=== PATIENT | male | born 1975 | race Caucasian/White ===

== ENCOUNTER → 2024-09-22 11:02 | Outpatient (REF) | payer OTHER, SELFPAY | LOC: RAD 11:02 | PROVIDERS: ATTENDING PHYSICIAN Internal Medicine | DX: M79.662 Pain in left lower leg (principal) | CPT/HCPCS: 73590 ==

== ENCOUNTER 2025-06-04 15:32 | Emergency (ER) | payer OTHER, SELFPAY ==
[2025-06-04 15:36] VITALS: BP 165/116
[2025-06-04 16:00] LABS: Hematocrit 48.1 % (39.0-52.0); Hemoglobin 16.7 g/dL (13.0-18.0); Mean Corp Hgb Conc. 34.7 g/dL (33.0-37.0); Mean Corpuscular Volume 91.3 fL (80.0-94.0); Nucleated Red Blood Cells % 0 % (-); Platelet Count 163 10^3/uL (130-400); Red Cell Dist. Width 12.9 % (11.5-14.5)
[2025-06-04 16:10] LABS: ALT (SGPT) 59 U/L (0-50); AST (SGOT) 40 U/L (17-59); Albumin 4.8 g/dl (3.5-5.0); Alkaline Phosphatase 124 U/L (38-126); Blood Urea Nitrogen 8 mg/dl (9-20); Calcium 9.5 mg/dl (8.4-10.2); Carbon Dioxide 30 mmol/L (22-30); Chloride 102 mmol/L (98-107); Glucose 137 mg/dl (70-99); Potassium 4.5 mmol/L (3.5-5.1); Sodium 138 mmol/L (135-145); Total Protein 7.2 g/dl (6.3-8.2); eGFR > 60.00
[2025-06-04 16:21] LABS: Troponin I 0.015 ng/ml
[2025-06-04 20:00] VITALS: BP 150/101
--- NOTE | 2025-06-04 20:12 | ED.GENMED ---
History of Present Illness
General
Chief Complaint: Chest Pain
Time Seen by Provider: 06/04/25 20:09
Nursing documentation reviewed up to this point in time: agreed with
History of Present Illness
History of Present Illness:
49-year-old male presents to the ER for evaluation of right-sided chest pain which was occurring earlier today. He has no symptoms of pain on arrival in the ER, nor during period of observation while here. He states that he was able to complete
his yard work today without any change in intensity or nature of his discomfort. He denies feeling of shortness of breath. No dyspepsia. No abdominal pain. No palpitations syncope or trauma. 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
defibrillator. He is a long-term patient of Dr. Mendez. He denies any recent cough or cold symptoms. He is been eating and drinking without any difficulty. He did not take any medications to help alleviate his symptoms prior to arrival.
Past History
Past History
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
ED Past Surgical History: Cardiac (AICD hocm)
Social History
Tobacco: Smoker
Alcohol: None
Drug: None
Personal:
Living: with family
Employment: Employed
Family History
Family History: Negative Sudden
Phy Exam
Physical Exam
Physical Exam:
Patient is awake, alert, appears in no acute distress, head is NCAT, PERRL, EOMI mucous membranes moist, conjunctiva pink, heart regular rate and rhythm without murmurs or ectopy, ICD present right anterior chest wall with well-healed surgical
incision, no erythema, pain is not proved producible on palpation of the chest wall, no abnormal chest wall excursion, no overlying rashes lungs are clear to auscultation without wheezes rales or rhonchi, no JVD, abdomen is soft and nontender on
palpation, extremities without edema, GCS is 15
Scores
Heart Score for Chest Pain Patients
STEMI patient?: No
History: Slightly or Non-Suspicious
ECG: Nonspecific Repolarization
Age: >45 - <65 years
Risk Factors: 1 or 2 Risk Factors
Troponin: </= Normal Limit
Heart Score for Chest Pain Patients: 3
Heart Score Risk: 2.5% MACE over next 6 weeks
Course
Orders/Labs/Results
Orders:
Orders
06/04/25 15:35
EKG [Electrocardiogram (*1)] Urgent
Reason for Study: Chest Pain
EKG- Treatment ONCE
06/04/25 15:45
Complete Blood Count/With Diff Urgent
Comprehensive Metabolic Panel Urgent
Troponin I Urgent
06/04/25 20:19
Electrocardiogram (*1) Urgent
Reason for Study: Chest Pain
EKG- Treatment ONCE
CR Chest - 2 Views Urgent
Comment:
Reason For Exam: chest pain
06/04/25 20:41
Troponin I Urgent
Abnormal Lab Results
06/04/25
15:45
MCH 31.7 H pg
(27.0-31.0)
MPV 11.2 H fL
(7.4-10.4)
BUN 8 L mg/dl
(9-20)
Glucose 137 H mg/dl
(70-99)
ALT 59 H U/L
(0-50)
06/04/25 15:45
06/04/25 15:45
Very reassuring troponin x 2. CBC within normal limits. No significant electrolyte dyscrasia.
Vital Signs
Initial and Last Documented VS:
Initial Vital Signs
Temp Pulse Resp BP Pulse Ox
98.2 F 76 15 165/116 100
06/04/25 15:36 06/04/25 15:36 06/04/25 15:36 06/04/25 15:36 06/04/25 15:36
Last Documented Vital Signs
Temp Pulse Resp BP Pulse Ox
98.2 F 69 16 151/104 100
06/04/25 15:36 06/04/25 20:46 06/04/25 20:46 06/04/25 20:46 06/04/25 20:13
MDM/Problems Addressed
Differential Diagnosis Includes:
Differential diagnosis to consider but not limited to ACS, muscle strain, pneumonia, contusion along with other etiologies considered
Chronic conditions affecting care:
HOCUM, Hypertension
*Radiology
Radiology exam reviewed: preliminary read by ED provider (I independently viewed and interpreted two-view chest x-ray showing no infiltrate, clear lungs, normal cardiac silhouette, ICD present in similar position compared to prior chest x-ray from
04/29/2014)
*Pulse Oximetry
SaO2: 100
Oxygen Mode of Delivery: Room air
Patient hypoxic: no
*EKG
Interpreted by ED Provider?: Yes (I independently viewed and interpreted twelve-lead EKG showing normal sinus rhythm, incomplete right bundle branch block, nonspecific T wave inversions in the lateral leads without ST elevation, similar to prior
from 01/05/2018)
*Senior [employer] Interpretation
Rate: normal (I independently viewed and interpreted rhythm strip showing normal sinus rhythm, incomplete right bundle branch block)
*Critical Care Note
Total Time (30-74mins, 75-104mins- exclusive of procedures): Not Applicable
Data Reviewed
Review of Other/Old Records Reveals: Testing (I reviewed stress echocardiogram from 09/19/2022 CONCLUSIONS Normal treadmill stress echocardiogram at 10 mets. Lainez were not measured but there is concentric LVH. There is limited Doppler but may
be some degree of mild aortic stenosis with mean pressure gradient of 9 mm Hg. Low risk stress)
Update Note
Update Note:
I independently viewed and interpreted repeated twelve-lead EKG at 2044 showing normal sinus rhythm, incomplete right bundle branch block, rate 60, persistent T wave inversions in the lateral leads without change compared to prior EKG from earlier
today or prior from 2018
2125: Patient is asymptomatic throughout observation in the emergency department. I discussed with patient elevated blood pressures-he states that he did not take his verapamil today. I offered patient dose of verapamil now, he would prefer to
take his medication at home. I discussed with patient importance of following up with his folder and notcher for reevaluation, although full evaluation in the ER would suggest that his symptoms are not specifically related to ACS. Patient expressed
understanding of discharge plan and feels comfortable. He has no questions prior to the department.
ED Attending Note
-
Portions of this chart may have been created with voice recognition software.� Occasional wrong word or��sound alike� substitutions may have occurred due to the inherent limitations of voice recognition software.
Discharge Plan
Departure
Patient Disposition: Home (Routine Discharge)
Date of Disposition: 06/04/25
Time of Disposition: 21:18
Patient with high blood pressure during this ER visit?: Yes
Discharge Problem:
Chest pain
Instructions: Chest pain, Chest Pain DCA Follow Up
Referrals:
Aiden Love MD [Active, Cardiology] - Next open appointment
Cristian Yates MD [Family Provider, Internal Medicine]
Activity Restrictions/Additional Instructions:
Please take your verapamil when you get home tonight. Return to the ER for any concerns.
Interventions
Interventions:
*Risk Screen - Suicide Last Done: 06/04/25 15:36
*General Assessment Last Done: 06/04/25 15:36
*Neglect/Abuse Screening Last Done: 06/04/25 15:36
*ED COVID-19 Vaccine History Last Done: 06/04/25 15:36
*ED Influenza Vaccine History Last Done: 06/04/25 15:36
ED- Cardiac Assessment Last Done: 06/04/25 19:06
Discharge Date and Time
Print Language: NEPALESE
[2025-06-04 20:46] VITALS: BP 151/104
[2025-06-04 21:00] VITALS: BP 158/113
[2025-06-04 21:15] LABS: Troponin I 0.016 ng/ml
== END 2025-06-04 21:38 | disposition home or self-care (01) ==
LOC: EMR 15:32
PROVIDERS: Emergency Medicine; EMERGENCY PHYSICIAN Emergency Medicine; FAMILY PHYSICIAN Internal Medicine
DX: R07.89 Other chest pain (principal); I45.10 Unspecified right bundle-branch block; I10 Essential (primary) hypertension; I42.1 Obstructive hypertrophic cardiomyopathy; Z95.810 Presence of automatic (implantable) cardiac defibrillator; F17.200 Nicotine dependence, unspecified, uncomplicated
CPT/HCPCS: 99285; 71046; 80053; 84484; 85025; 93005